=== PATIENT | female | born 1955 | race Caucasian/White ===

== ENCOUNTER 2024-10-11 17:47 | Inpatient (IN) | payer OTHER ==
[~2024-10-11] VITALS: Ht 160 cm; Wt 68.0 kg
[~2024-10-11 17:47] MED LIST: OMEP20CA74 OR
[2024-10-11] MEDS ORDERED: HEPARIN SODIUM (PORCINE) 5000 UNITS/ML 1ML VIAL IV ONE (18:30)
[2024-10-11] MEDS ORDERED: ONDANSETRON HCL 4 MG/2 ML VIAL IV PRN (18:30)
[2024-10-11] MEDS ORDERED: MORPHINE SULFATE INJ 2 MG/ml SYRG IV PRN ×2 (18:30)
[2024-10-11] MEDS ORDERED: HYDROcodone-ACET 5/325MG TAB PO PRN (18:30)
[2024-10-11] MEDS ORDERED: NITROGLYCERIN 0.4 MG SL TAB SL PRN (18:30)
[2024-10-11 18:39] VITALS: BP 121/71; PULSE 77; RESP 17; TEMP 98; O2SAT 97
[2024-10-11 19:11] LABS: Hematocrit 39.3 % (36.0-46.0); Hemoglobin 13.3 g/dL (12.2-16.2); Mean Corpuscular Hemoglobin 31.7 pg (28.0-32.0); Mean Corpuscular Volume 93.3 fL (80.0-100.0); Nucleated Red Blood Cells % 0.1 %
[2024-10-11 19:24] LABS: Alanine Aminotransferase 13 U/L (7-40); Albumin 4.7 g/dL (3.2-4.8); Alkaline Phosphatase 106 U/L (46-116); Anion Gap 8 (5-15); BUN/Creatinine Ratio 13.0 (10.0-20.0); Blood Urea Nitrogen 10 mg/dL (9-23); Calcium 9.6 mg/dL (8.7-10.4); Carbon Dioxide 26 mmol/L (20-31); Chloride 106 mmol/L (98-107); Glucose 103 mg/dL (74-106); Magnesium 2.2 mg/dL (1.6-2.6); Potassium 4.7 mmol/L (3.5-5.1); Sodium 140 mmol/L (136-145); Total Protein 7.0 g/dL (5.7-8.2)
[2024-10-11] MEDS ORDERED: ATOR20TA PO (19:24)
[2024-10-11 19:25] LABS: Bilirubin, Total 1.0 mg/dL (0.2-1.0)
[2024-10-11 19:36] LABS: INR 0.97 (0.9-1.15); Partial Thromboplastin Time 27.0 SEC (24.5-34.5); Prothrombin Time 10.3 sec (9.3-11.8)
[2024-10-11 20:30] VITALS: PULSE 87; O2SAT 96
[2024-10-11 21:00] VITALS: BP 122/56; PULSE 80; RESP 16; TEMP 98.5; O2SAT 98
[2024-10-11] MEDS: HEPARIN DRIP/D5W 100UNITS/ML 250 ML IV SCH (21:26)
[2024-10-11] MEDS: ACETAMINOPHEN 325 MG TAB PO PRN (23:31)
[2024-10-12] VITALS (9 sets, daily range): BP systolic 91–115; BP diastolic 52–74; PULSE 69–80; RESP 16–20; TEMP 98–99; O2SAT 95–98
--- NOTE | 2024-10-12 00:44 | DVHHP2 ---
Admitting Diagnosis: Left lower extremity DVT History of Present Illness History Source: Patient Exam Limitations: No limitations HPI Mrs. Linda Devries is a 69 yo female with a history of high cholesterol and acid reflux who presents with a chief complaint of left lower extremity DVT sent from Urgent care as a direct admit. Patient reports she had sudden left lower extremity pain on Thursday with associated worsening swelling. Patient denies any trauma to left lower extremity, recent falls, dyspnea, palpitations, chest pain. Patient admitted for further treatment. Home Meds Reported Medications Atorvastatin Calcium (Lipitor) 20 Mg Tab, 1 TAB PO DAILY, #90 TAB 1 Refill 10/11/24 Omeprazole (PRILOSEC) 20 Mg Cap, 40 MG OR DAILY, CAP 10/23/14 Past Medical History Cardiac: Other (high cholesterol) Pulmonary: No pertinent Hx Central Nervous System: No pertinent Hx GI: GERD Hemotology/Oncology: No pertinent Hx Hepatobiliary: No pertinent Hx Psychiatric: No pertinent Hx Musculoskeletal: No pertinent Hx Rheumotologic: No pertinent Hx Infectious Disease: No peritnent Hx ENT: No pertinent Hx Renal/: No pertinent Hx Endocrine: No pertinent Hx Dermatology: No pertinent Hx Patient Family History: FH: cancer G8 MOTHER G8 FATHER Smoker: No Hx (Negative) Alocohol: None Drugs: None Lives with: With family Domestic Violence: Neg Review of Systems Constitutional: No symptom reported Ears, Nose, & Throat: No symptom reported Eyes: No symptom reported Pulmonary/Respiratory: No symptom reported Cardiovascular: No symptom reported Gastrointestinal: No symptom reported Genitourinary: No symptom reported Musculoskeletal: Leg pain (left lower extremity pain with swelling) Skin: No symptom reported Psychiatric: No symptom reported Endocrine: No symptom reported Hemotologic/Lymphatic: No symptom reported H&P Exam Vital Signs Vital Signs Date Time Temp Pulse Resp B/P (MAP) Pulse Ox O2 Delivery O2 Flow Rate FiO2 10/11/24 21:00 98.5 80 16 122/56 (78) 98 98.5 10/11/24 18:39 Room Air* 0 21 General Appeara: Well developed, Well nourished, Normal Appearance Head Exam: Normal inspection Neck Exam: Normal inspection, Non-tender, Normal alignment Eye Exam: bilateral eye Normal inspection, bilateral eye PERRL, bilateral eye EOMI Ear Exam: bilateral ear Auricle normal Nasal Exam: Normal inspection Mouth: Normal Inspection Pulmonary/Respiratory: Normal inspection, Normal breath sounds, Chest non- tender, Lungs clear Cardiovascular/Chest: Normal inspection, Regular rate, Normal Rhythm Peripheral Pulses: 2+ dorsalis pedis (R), 2+ dorsalis pedis (L), 2+ Radial (R), 2+ Radial (L) Abdominal Exam: Normal bowel sounds, Soft Rectal Exam: Deferred Legs: left leg soft tissue tenderness, left leg swelling SAMPLE MOUNTER Exam: Normal hearing, Normal speech, PERRL Motor/Sensory: Normal sensory function, Normal motor function Neuro/Mental St: Alert, Oriented Appearance: Appropriate appearance Eye contact/ Speech: Cooperative, Good eye contact, Normal speech Thoughts/Psych: Normal thought pattern Skin Exam: Normal inspection, Normal color, Warm/dry SEPSIS Sepsis Screen Physician Orders Admit (10/11/24 18:) Oxygen By Nasal Cannula (10/11/24 18:27) Nitroglycerin Sublingual (Ntrostat Subli (10/11/24 18:30) Morphine Sulfate Injection (10/11/24 18:30) Stat Ekg For Chest Pain (10/11/24 18:) Notify Md Of Changes From Base (10/11/24 18:) Pricing Lead For 24 Hours (10/11/24 18:27) Emergency Dysrhythmia Protocol (10/11/24 18:) Rhythm Strips Once Every Shift (10/11/24 18:) Platelet Monitoring (10/11/24 18:27) Vte Protocol Initiated (10/11/24 18:) Heparin Per Standardized Proce (10/11/24 18:) Discontinue All Im Injections (10/11/24 18:27) Heparin Drip/D5w 100units/Ml (10/11/24 20:00) Acetaminophen Tablet (Tylenol Tablet) (10/11/24 18:30) Hydrocodone-Acet 5/325mg Tab ([place] 5/32 (10/11/24 18:30) Morphine Sulfate Injection (10/11/24 18:30) Ondansetron Hcl (Zofran) (10/11/24 18:30) * Radiologist Consult (10/11/24 18:27) Npo (Nothing By Mouth) Diet (10/12/24 Breakfast) PTPTT (10/12/24 03:30) Complete Blood Count (10/12/24 04:00) Urinalysis (10/12/24 00:39) Chest Portable (10/12/24 00:39) Vital Signs Date Time Temp Pulse Resp B/P (MAP) Pulse Ox O2 Delivery O2 Flow Rate FiO2 10/11/24 21:00 98.5 80 16 122/56 (78) 98 98.5 10/11/24 18:39 Room Air* 0 21 10/11/24 18:39 98.0 77 17 121/71 (88) 97 98.0 Laboratory Tests Test 10/11/24 18:57 White Blood Count 7.2 10^3/uL (4.4-10.8) Medications Medications Dose Ordered Sig/Héctor Route Start Time Stop Time Status Last Admin Dose Admin Acetaminophen 650 mg Q6HP PRN PO 10/11/24 18:30 10/11/24 23:31 650 MG Heparin Sodium/ Dextrose 250 ml @ 12 mls/hr [id number] IV 10/11/24 20:00 10/11/24 21:26 12 MLS/HR Labs/Xrays Labs Test 10/11/24 18:57 Range/Units White Blood Count 7.2 4.4-10.8 10^3/uL Red Blood Count 4.21 4.0-5.20 10^6/uL Hemoglobin 13.3 12.2-16.2 g/dL Hematocrit 39.3 36.0-46.0 % Mean Corpuscular Volume 93.3 80.0-100.0 fL Mean Corpuscular Hemoglobin 31.7 28.0-32.0 pg Mean Corpuscular Hemoglobin Concent 33.9 32.0-36.0 g/dL Red Cell Distribution Width 15.1 H 11.8-14.3 % Platelet Count 163 140-450 10^3/uL Mean Platelet Volume 8.8 6.9-10.8 fL Neutrophils (%) (Auto) 71.2 37.0-80.0 % Lymphocytes (%) (Auto) 17.6 10.0-50.0 % Monocytes (%) (Auto) 8.8 0.0-12.0 % Eosinophils (%) (Auto) 1.7 0.0-7.0 % Basophils (%) (Auto) 0.7 0.0-2.0 % Neutrophils # (Auto) 5.1 1.6-8.6 10 ^3/uL Lymphocytes # (Auto) 1.3 0.4-5.4 10 ^3/uL Monocytes # (Auto) 0.6 0-1.3 10 ^3/uL Eosinophils # (Auto) 0.1 0-0.8 10 ^3/uL Basophils # (Auto) 0 0-0.2 10 ^3/uL Nucleated Red Blood Cells 0.1 % Prothrombin Time 10.3 9.3-11.8 sec Prothrombin Time INR 0.97 0.9-1.15 Activated Partial Thromboplast Time 27.0 24.5-34.5 SEC Sodium Level 140 136-145 mmol/L Potassium Level 4.7 3.5-5.1 mmol/L Chloride Level 106 98-107 mmol/L Carbon Dioxide Level 26 20-31 mmol/L Anion Gap 8 5-15 Blood Urea Nitrogen 10 9-23 mg/dL Creatinine 0.77 0.550-1.02 mg/dL Glomerular Filtration Rate Calc 83 >90 mL/min BUN/Creatinine Ratio 13.0 10.0-20.0 Serum Glucose 103 74-106 mg/dL Calcium Level 9.6 8.7-10.4 mg/dL Magnesium Level 2.2 1.6-2.6 mg/dL Total Bilirubin 1.0 0.2-1.0 mg/dL Aspartate Amino Transferase (AST) 17 13-40 U/L Alanine Aminotransferase (ALT) 13 7-40 U/L Alkaline Phosphatase 106 46-116 U/L B-Type Natriuretic Peptide 25.83 0-100 pg/mL Total Protein 7.0 5.7-8.2 g/dL Albumin 4.7 3.2-4.8 g/dL Assessment/Plan Problem List: (1) Left leg DVT Plan This is a 69 yo female who presents as a direct admit from Urgent care found to have 1. Left lower extremity DVT 2. Hypercholesteremia 3. GERD Plan Admit Telemetry Interventional Radiology consultation Heparin drip per pharmacy DVT protocol NPO after midnight GI ppx Fall Precautions Discussed all above with patient who verbalizes agreement and understanding of care plan. All questions were answered. Discussed care plan with admitting / supervising MD. Plan discussed with: Patient, Other Code Visit Code Visit Total Time (mins): 45 Additional Comments Additional Comments Additional Comments 69-year-old female with a known history of dyslipidemia, GERD who initially presented to the hospital with a left lower extremity swelling worsening for last three days was seen in urgent Care found to have left lower extremity extensive DVT. 1. Left lower extremity extensive DVT 2. GERD 3. Dyslipidemia -continue heparin drip per pharmacy for DVT, IR consult for thrombectomy -CT pelvis with a venous contrast phase as per IR request. MIQUEL REICH Oct 12, 2024 00:44 FLORI ARTEAGA MD Oct 12, 2024 15:37
[2024-10-12 03:42] LABS: Hematocrit 35.9 % (36.0-46.0); Hemoglobin 12.3 g/dL (12.2-16.2); Mean Corpuscular Hemoglobin 32.0 pg (28.0-32.0); Mean Corpuscular Volume 93.2 fL (80.0-100.0); Nucleated Red Blood Cells % 0.0 %
[2024-10-12 04:21] LABS: INR 0.97 (0.9-1.15); Partial Thromboplastin Time 68.5 SEC (24.5-34.5); Prothrombin Time 10.3 sec (9.3-11.8)
[2024-10-12 05:45] LABS: Urine Protein, UAD Negative (Negative)
--- NOTE | 2024-10-12 07:23 | DVH ---
CHEST RADIOGRAPH Indication:admit Technique: Single frontal view of the chest was obtained COMPARISON: None FINDINGS: Lines and Tubes: None Lungs: Clear Pleura: No effusion. No pneumothorax. Cardiomediastinal contours: Unremarkable Bones: Unremarkable IMPRESSION: 1. No acute disease.
[2024-10-12] MEDS: cefTRIAXone 1GM/50ML D5W 50 ML IV SCH (09:35)
[2024-10-12 10:57] LABS: INR 0.98 (0.9-1.15); Prothrombin Time 10.4 sec (9.3-11.8)
[2024-10-12 11:06] LABS: Partial Thromboplastin Time 88.0 SEC (24.5-34.5)
--- NOTE | 2024-10-12 11:20 | CONS ---
Pharmacy Clinical Information: 10/12 PTT @ 1010 = 88.0 DECREASE TO 1000 UNITS/HR NEXT PTT @ 1720 10/12/24 PER RX PROTOCOL CONFIRMED WITH NURSE JANNY JACINTO [facility] RESIDENT Oct 12, 2024 11:20
[2024-10-12] MEDS: HEPARIN DRIP/D5W 100UNITS/ML 250 ML IV SCH (12:12)
[2024-10-12] MEDS: IOHEXOL 350 MG/ML 100ML IJ ONE (15:46)
--- NOTE | 2024-10-12 16:32 | DVH ---
Exam: CT PELVIS WITH CONTRAST ONLY History: pre-op Comparison Study: None Technique: Multidetector CT of the pelvis was performed from iliac crests to pubic symphysis after th e administration of intravenous contrast was administered during this examination. Portal venous imag ing was obtained. Axial, coronal and sagittal multiplanar reformats were performed by the technTreSensais t on a separate workstation. Radiation Dose : CT Dose: CTDI volume is 12.97 mGy. Dose-length product is 581.07 mGy*cm Findings: Visualized bowel: No bowel wall thickening or dilatation. Ascites: Absent Lymphadenopathy: No pelvic or mesenteric lymphadenopathy. Vasculature: The visualized abdominal aorta is normal in size and caliber. Abdominal and pelvic vesse ls demonstrate normal enhancement. Pelvic Organs: Calcified uterus measure 9.3 cm length 3.2 cm by 5.2 cm Musculoskeletal: No acute osseous abnormality. Bladder: Unremarkable Soft tissues: Mild subcutaneous edema proximal left femur. IMPRESSION: 1. Uterus with calcified fibroids 2. No bony fractures All CT scans at this medical facility are performed using dose modulation techniques as appropriate t o a performed exam including the following: Automated exposure control was utilized; adjustment of th e MA and/or KV according to patient size; and use of iterative reconstruction technique.
[2024-10-12 18:56] LABS: INR 1.0 (0.9-1.15); Prothrombin Time 10.6 sec (9.3-11.8)
[2024-10-12 18:58] LABS: Partial Thromboplastin Time 73.7 SEC (24.5-34.5)
[2024-10-13] VITALS (14 sets, daily range): BP systolic 92–142; BP diastolic 55–77; PULSE 60–87; RESP 12–20; TEMP 97.4–98.5; O2SAT 94–100
[2024-10-13 01:08] LABS: INR 1.0 (0.9-1.15); Prothrombin Time 10.6 sec (9.3-11.8)
[2024-10-13 01:15] LABS: Partial Thromboplastin Time 73.8 SEC (24.5-34.5)
[2024-10-13 06:32] LABS: Hematocrit 37.2 % (36.0-46.0); Hemoglobin 12.6 g/dL (12.2-16.2); Mean Corpuscular Hemoglobin 31.6 pg (28.0-32.0); Mean Corpuscular Volume 93.2 fL (80.0-100.0); Nucleated Red Blood Cells % 0.0 %
[2024-10-13 09:46] LABS: INR 0.97 (0.9-1.15); Partial Thromboplastin Time 64.8 SEC (24.5-34.5); Prothrombin Time 10.3 sec (9.3-11.8)
--- NOTE | 2024-10-13 10:19 | CONS ---
Pharmacy Clinical Information: 10/13 PTT @0900 = 64.8 NO BOLUS NO CHANGE THIS IS THE 3RD CONSECUTIVE PTT WNL, WE WILL SCHEDULED PTT DAILY NEXT PTT @0500 10/14/24 PER RX PROTOCOL [facility] Oct 13, 2024 10:19
--- NOTE | 2024-10-13 11:15 | ECG ---
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
[2024-10-13] MEDS: HEPARIN SODIUM (PORCINE) 5000 UNITS/ML 1ML VIAL ONE (13:27)
[2024-10-13] MEDS: MIDAZOLAM HCL 2MG/2ML 2ml VIAL (1mg/ml) ONE (13:28)
[2024-10-13] MEDS: IODIXANOL 320MG/ML 100ML BTL IV ONE (13:28)
[2024-10-13] MEDS: LIDOCAINE 2%HCL (LOCAL ANESTH.) INJ 20ML MDV ONE (13:28)
[2024-10-13] MEDS: fentaNYL CITRATE 100 MCG/2 ML VL ONE (13:28)
--- NOTE | 2024-10-13 13:58 | DVHPN2 ---
Subjective Patient complaining of minimal pain in the left lower extremity, CT pelvis shows no evidence of any acute pathology. Patient is going for left leg thrombectomy by IR today. 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 Medications Current Medications Medications Dose Ordered Sig/Héctor Route Start Time Stop Time Status Last Admin Dose Admin Nitroglycerin 0.4 mg Q5MINP PRN SL 10/11/24 18:30 Morphine Sulfate 2 mg Q30M PRN IV 10/11/24 18:30 Acetaminophen 650 mg Q6HP PRN PO 10/11/24 18:30 10/11/24 23:31 650 MG Acetaminophen/ Hydrocodone Bitart 1 tab Q4HPRN PRN PO 10/11/24 18:30 Morphine Sulfate 2 mg Q4HPRN PRN IV 10/11/24 18:30 Ondansetron HCl 2 mg Q4HPRN PRN IV 10/11/24 18:30 Ceftriaxone Sodium 50 ml @ 100 mls/hr DAILY@09 IV 10/12/24 09:00 10/13/24 10:21 100 MLS/HR Heparin Sodium/ Dextrose 250 ml @ 10 mls/hr Q24H IV 10/12/24 11:20 10/12/24 16:30 10 MLS/HR Laboratory Results Laboratory Tests 10/11/24 18:57 10/13/24 05:17 Coagulation Test 10/12/24 18:11 10/13/24 00:20 10/13/24 09:00 Prothrombin Time 10.6 sec (9.3-11.8) 10.6 sec (9.3-11.8) 10.3 sec (9.3-11.8) Prothrombin Time INR 1.00 (0.9-1.15) 1.00 (0.9-1.15) 0.97 (0.9-1.15) Activated Partial Thromboplast Time 73.7 SEC (24.5-34.5) *H 73.8 SEC (24.5-34.5) *H 64.8 SEC (24.5-34.5) H Urinalysis Test 10/12/24 05:04 Urine Color Yellow (Yellow) Urine Clarity Clear (Clear) Urine pH 5.5 (5.0-9.0) Urine Specific [place] 1.027 (1.001-1.035) Urine Protein Negative (Negative) Urine Ketones Negative (Negative) Urine Blood Negative /uL (Negative) Urine Nitrite Negative (Negative) Urine Bilirubin Negative (Negative) Urine Urobilinogen Normal mg/dL (Negative) Urine Leukocyte Esterase 1+ /uL (Negative) Urine RBC None seen /hpf (0 - 4) Urine Microscopic WBC 5 /HPF (0-5) Urine Squamous Epithelial Cells Few /hpf (<5) Urine Bacteria None seen /hpf (None Seen) Urine Mucus Few (None Seen) Urine Glucose Normal mg/dL (Normal) Microbiology Microbiology Date/Time Source Procedure Growth Status 10/12/24 05:04 Voided Urine Urine Culture - Preliminary Resulted Assessment/Plan Assessment/Plan 69-year-old female with a known history of dyslipidemia, GERD who initially presented to the hospital with a left lower extremity swelling worsening for last three days was seen in urgent Care found to have left lower extremity extensive DVT. 1. Left lower extremity extensive DVT, currently on heparin drip 2. GERD 3. Dyslipidemia -continue heparin drip per pharmacy for DVT, IR consult for thrombectomy -discharge plan tomorrow on Eliquis. Plan discussed with: Patient, Spouse My Orders Orders - FLORI ARTEAGA MD Procedure Category Date Status Time Pelvis With Contrast CT 10/12/24 Resulted Only 15:21 Heparin Per Pharmacy MITCH 10/13/24 In Process Protocol 01:19 Complete Blood Count LAB 10/14/24 Verified 05:00 PTPTT LAB 10/14/24 Verified 05:00 Heparin Per Pharmacy MITCH 10/13/24 In Process Protocol 10:10 Midazolam Injection PHA 10/13/24 In Process (Versed Injection) 13:28 Date of Service: Oct 13, 2024 Billing Provider: FLORI ARTEAGA MD Common Visit Codes: NOT BILLABLE FLORI ARTEAGA MD Oct 13, 2024 13:58
--- NOTE | 2024-10-13 18:19 | DVH ---
PROCEDURE: Diagnostic venography and interventions Procedural Personnel Attending physician(s): Samson Veras Fellow physician(s): None Resident physician(s): None Advanced practice provider(s): None Procedure Date (//yy): 10/13/2024 Pre-procedure diagnosis: Left lower extremity DVT Post-procedure diagnosis: Same Indication: Deep venous thrombosis of uncertain age Additional clinical history: None Complications: No immediate complications. 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 Wide patency at case end with venous recanalization, mechanical thrombectomy, balloon venoplas ty, and stent placement. Plan: Continue anticoagulation with bridge to DOAC. Suture retention device to be removed 10/14/2Left knee s traight x2 hours, with assisted ambulation to follow. PROCEDURE SUMMARY: - Venous access with ultrasound guidance - Selective venography as described below - Additional procedure(s): None PROCEDURE DETAILS: Pre-procedure Consent: Informed consent for the procedure including risks, benefits and alternatives was obtained a nd time-out was performed prior to the procedure. Preparation: The site was prepared and draped using maximal sterile barrier technique including cutan eous antisepsis. Anesthesia/sedation Level of anesthesia/sedation: Moderate sedation (conscious sedation) Anesthesia/sedation administered by: Independent trained observer under attending supervision with co ntinuous monitoring of the patient s level of consciousness and physiologic status Total intra-service sedation time (minutes): 150 Access Local anesthesia was administered. The vessel was sonographically evaluated and determined to be part ially thrombosed. Real time ultrasound was used to visualize needle entry into the vessel and a perma nent image was stored. A 13 [place] sheath was placed. Laterality: Left Vein accessed: Popliteal vein Access technique: Micropuncture set with 21 gauge needle Venography The veins were catheterized using 5 [place] Berenstein/5 Fr GlideCath/0.035 stiff glidewire/0.035 Ampl jeff. Indication for venography: Diagnostic angiography - There was no prior catheter-based angiographic st udy available and a full diagnostic study was performed. The decision to intervene was based on the d iagnostic study. Vein catheterized: Left popliteal vein Findings: Near complete thrombosis of the left popliteal, femoral, common femoral, and external iliac veins. 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 prominent regional collaterals Venoplasty Venoplasty location: Left common iliac vein Venoplasty balloon: 6x40 Bostic Post-intervention venography: Minimal flow within the recanalized left common iliac vein Venous stent placement Venous stent location: Left common iliac vein Venous stent: Abre 14mm x 80mm Post-stenting venoplasty: Conquest 14mm x 40mm (subnominal, approx 1-2 andrea) Post-stenting venography: Wide patency of left common iliac stent with appropriate contrast washout Mechanical or aspiration thrombectomy Venous segment treated: Left common iliac, external iliac, common femoral, femoral, and popliteal vei ns Thrombectomy device: ClotTriever Bold Post-thrombectomy venography: Resolution of thrombus burden with persistent moderate flow limiting st enosis of the left common iliac vein Intra-procedural thrombolytic injection Thrombolytic injection location: NA Thrombolytic agent:NA Thrombolytic dose: NA Post-intervention venography: NA Initiation of catheter-directed thrombolysis Catheter placed: NA Infusion length: NA Venous segment infused: NA Intravascular ultrasound Vessel imaged: None Indication for IVUS: Not applicable Findings: Not applicable Closure The sheath was removed and hemostasis was achieved. Venous closure technique: FlowStasis Contrast Contrast agent: Visipaque 320 Contrast volume (mL): 100 Radiation Dose Fluoroscopy time (mm:ss): 26:49 Reference air kerma (mGy): 125 Kerma area product (Gy-cm2): 18.66 Additional Details Additional description of procedure: None Registry event: V/3/g Device used: None Equipment details: None Unique Device Identifiers: Not available Specimens removed: None Estimated blood loss (mL): Less than 10 Standardized report: [email or web address] Attestation Signer name: Samson Veras I attest that I was present for the entire procedure. I reviewed the stored images and agree with the report as written.
[2024-10-13 18:39] LABS: INR 1.02 (0.9-1.15); Prothrombin Time 10.8 sec (9.3-11.8)
[2024-10-13 18:54] LABS: Partial Thromboplastin Time 110.9 SEC (24.5-34.5)
[2024-10-13] MEDS: HEPARIN DRIP/D5W 100UNITS/ML 250 ML IV SCH (20:01)
[2024-10-14] VITALS (8 sets, daily range): BP systolic 106–128; BP diastolic 60–79; PULSE 72–83; RESP 18–20; TEMP 98–99.7; O2SAT 94–99
[2024-10-14 02:22] LABS: Hematocrit 37.5 % (36.0-46.0); Hemoglobin 12.7 g/dL (12.2-16.2); Mean Corpuscular Hemoglobin 31.7 pg (28.0-32.0); Mean Corpuscular Volume 93.6 fL (80.0-100.0); Nucleated Red Blood Cells % 0.1 %
[2024-10-14 02:49] LABS: INR 0.98 (0.9-1.15); Partial Thromboplastin Time 38.3 SEC (24.5-34.5); Prothrombin Time 10.4 sec (9.3-11.8)
[2024-10-14] MEDS: HEPARIN DRIP/D5W 100UNITS/ML 250 ML IV SCH ×2 (03:14→12:35)
[2024-10-14 11:41] LABS: INR 1.0 (0.9-1.15); Partial Thromboplastin Time 40.6 SEC (24.5-34.5); Prothrombin Time 10.6 sec (9.3-11.8)
--- NOTE | 2024-10-14 12:25 | CONS ---
Pharmacy Clinical Information: 10/14/2024 APTT result of 40.6 received from 1037 draw. Per protocol, will adjust heparin to 1100 units per hour (11mL/hr). Nurse Vidal adjusted rate at 1153, confirmed at 1215. APTT/PT ordered for 10/14 @1800 per PRx protocol. ERNESTO CUEVAS PHARMACIST Oct 14, 2024 12:25
[2024-10-14] MEDS ORDERED: APIX5TAB PO (14:44)
[2024-10-14] MEDS ORDERED: HYDR-4902 PO (14:44)
--- NOTE | 2024-10-14 14:46 | DVHDS2 ---
Discharge Summary Date of Admission Oct 11, 2024 at 18:15 Date of Discharge: Oct 14, 2024 Labs/Diagnostic Data: Laboratory Results Test 10/14/24 10:37 10/14/24 01:48 10/12/24 05:04 10/11/24 18:57 Prothrombin Time 10.6 sec (9.3-11.8) Prothrombin Time INR 1.00 (0.9-1.15) Activated Partial Thromboplast Time 40.6 SEC (24.5-34.5) White Blood Count 6.1 10^3/uL (4.4-10.8) Red Blood Count 4.01 10^6/uL (4.0-5.20) Hemoglobin 12.7 g/dL (12.2-16.2) Hematocrit 37.5 % (36.0-46.0) Mean Corpuscular Volume 93.6 fL (80.0-100.0) Mean Corpuscular Hemoglobin 31.7 pg (28.0-32.0) Mean Corpuscular Hemoglobin Concent 33.8 g/dL (32.0-36.0) Red Cell Distribution Width 14.8 % (11.8-14.3) Platelet Count 179 10^3/uL (140-450) Mean Platelet Volume 8.9 fL (6.9-10.8) Neutrophils (%) (Auto) 71.6 % (37.0-80.0) Lymphocytes (%) (Auto) 18.3 % (10.0-50.0) Monocytes (%) (Auto) 7.1 % (0.0-12.0) Eosinophils (%) (Auto) 2.4 % (0.0-7.0) Basophils (%) (Auto) 0.6 % (0.0-2.0) Neutrophils # (Auto) 4.4 10 ^3/uL (1.6-8.6) Lymphocytes # (Auto) 1.1 10 ^3/uL (0.4-5.4) Monocytes # (Auto) 0.4 10 ^3/uL (0-1.3) Eosinophils # (Auto) 0.1 10 ^3/uL (0-0.8) Basophils # (Auto) 0 10 ^3/uL (0-0.2) Nucleated Red Blood Cells 0.1 % Urine Color Yellow (Yellow) Urine Clarity Clear (Clear) Urine pH 5.5 (5.0-9.0) Urine Specific [place] 1.027 (1.001-1.035) Urine Protein Negative (Negative) Urine Ketones Negative (Negative) Urine Blood Negative /uL (Negative) Urine Nitrite Negative (Negative) Urine Bilirubin Negative (Negative) Urine Urobilinogen Normal mg/dL (Negative) Urine Leukocyte Esterase 1+ /uL (Negative) Urine RBC None seen /hpf (0 - 4) Urine Microscopic WBC 5 /HPF (0-5) Urine Squamous Epithelial Cells Few /hpf (<5) Urine Bacteria None seen /hpf (None Seen) Urine Mucus Few (None Seen) Urine Glucose Normal mg/dL (Normal) Sodium Level 140 mmol/L (136-145) Potassium Level 4.7 mmol/L (3.5-5.1) Chloride Level 106 mmol/L (98-107) Carbon Dioxide Level 26 mmol/L (20-31) Anion Gap 8 (5-15) Blood Urea Nitrogen 10 mg/dL (9-23) Creatinine 0.77 mg/dL (0.550-1.02) Glomerular Filtration Rate Calc 83 mL/min (>90) BUN/Creatinine Ratio 13.0 (10.0-20.0) Serum Glucose 103 mg/dL (74-106) Calcium Level 9.6 mg/dL (8.7-10.4) Magnesium Level 2.2 mg/dL (1.6-2.6) Total Bilirubin 1.0 mg/dL (0.2-1.0) Aspartate Amino Transferase (AST) 17 U/L (13-40) Alanine Aminotransferase (ALT) 13 U/L (7-40) Alkaline Phosphatase 106 U/L (46-116) B-Type Natriuretic Peptide 25.83 pg/mL (0-100) Total Protein 7.0 g/dL (5.7-8.2) Albumin 4.7 g/dL (3.2-4.8) Other Laboratory Tests 10/14/24 01:48 10/11/24 18:57 Brief Hx & Hospital Course: Mrs. Linda Devries is a 69 yo female with a history of high cholesterol and acid reflux who presents with a chief complaint of left lower extremity DVT sent from Urgent care as a direct admit. Patient reports she had sudden left lower extremity pain on Thursday with associated worsening swelling. Patient denies any trauma to left lower extremity, recent falls, dyspnea, palpitations, chest pain. Patient admitted for further treatment. She is admitted and had a pelvic CT showed a calcified uterine fibroid. Chest x-ray did not show any acute pathology. Lower extremity showed extensive DVT therefore she is evaluated by Interventional Radiology underwent successful thrombectomy. Post thrombectomy she is doing better. Meantime while in the hospital she is continued on IV heparin per DVT protocol. She is transitioned to oral Eliquis. Otherwise overall patient clinically stable. Leg pain has improved. Feeling better. Therefore it is felt she can be safely discharged home. Patient denied any chest pain or shortness for breath symptoms. Oxygenating normally on room air. However the etiology for her blood clot in the leg is unclear. There her I have educated the patient and counseled that she needs to follow up with her primary care physician to have routine screening studies including but not limited to mammogram and colonoscopy and further workup and evaluation for her blood clot. Patient verbalized understanding of this and verbalized understanding of being compliance with the oral anticoagulation and have a close follow up as mentioned. Operations or Procedures PROCEDURE: Diagnostic venography and interventions Procedural Personnel Attending physician(s): Samson Veras Fellow physician(s): None Resident physician(s): None Advanced practice provider(s): None Procedure Date (mm/dd/yyyy): 10/13/2024 Pre-procedure diagnosis: Left lower extremity DVT Post-procedure diagnosis: Same Indication: Deep venous thrombosis of uncertain age Additional clinical history: None Complications: No immediate complications. 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 Wide patency at case end with venous recanalization, mechanical thrombectomy, balloon venoplasty, and stent placement. Plan: Continue anticoagulation with bridge to DOAC. Suture retention device to be removed 10/14/2Left knee straight x2 hours, with assisted ambulation to follow. Condition at Discharge: Stable Final Diagnosis/Problems List Acute/subacute lower extremity DVT status post thrombectomy by Interventional Radiology, lower extremity pain Discharge Disposition: Home Discharge Instruct/Medications Diet: Consistent carbohydrate, Cardiac 2g Na,low cholest Activity: No Restrictions, As Tolerated Follow Up/Referral: Primary care physician next week for further workup and evaluation of your blood clot and referral to healthcare architect/oncologist as appropriate. Medications: Take Eliquis blood thinner as prescribed for your blood clot and [place] as needed for leg pain. Continue other home medications as you were taking. Scheduled Apixaban Base (Eliquis), 5 MG PO BID Atorvastatin Calcium (Lipitor), 1 TAB PO DAILY, (Reported) Omeprazole (Prilosec), 40 MG OR DAILY, (Reported) Scheduled PRN Hydrocodone-Acetaminophen (Hydrocodone Bitartrate/AC 5-325 mg), 1 TAB PO BID PRN Discharge Statement: "Patient was advised to return to the ER or call 911 if any headaches, dizziness, shortness of breath, chest pain, abdominal pain, bleeding, fevers, or worsening of medical condition. Patient was counseled about treatment plan, medications, possible side effects, patientverbalized understanding. All questions were answered to the best of my ability. This discharge took greater then 30 minutes in planning, reviewing documentation, counseling the patient, and discussing with other team members." ASSESSMENT ASSESSMENT Assessment Acute/subacute lower extremity DVT status post thrombectomy by Interventional Radiology, lower extremity pain GREG REICH MD Oct 14, 2024 14:46
[2024-10-14] MEDS: APIXABAN 5 MG TAB PO ONE (18:08)
[2024-10-14 19:20] LABS: INR 0.97 (0.9-1.15); Partial Thromboplastin Time 27.0 SEC (24.5-34.5); Prothrombin Time 10.3 sec (9.3-11.8)
== END 2024-10-14 18:35 | disposition home or self-care (01) | DRG 272 ==
LOC: TELE-WESTW 18:15
PROVIDERS: ADMIT Hospitalist; ATTEND Hospitalist
PROC: 06CD3ZZ Extirpation of Matter from Left Common Iliac Vein, Percutaneous Approach (ICD-10-PCS; principal; 2024-10-13)
PROC: 067D3DZ Dilation of Left Common Iliac Vein with Intraluminal Device, Percutaneous Approach (ICD-10-PCS; 2024-10-13)
PROC: B51CYZZ Fluoroscopy of Left Lower Extremity Veins using Other Contrast (ICD-10-PCS; 2024-10-13)
DX: I82.422 Acute embolism and thrombosis of left iliac vein (principal); K21.9 Gastro-esophageal reflux disease without esophagitis; E78.00 Pure hypercholesterolemia, unspecified; D25.9 Leiomyoma of uterus, unspecified; I82.432 Acute embolism and thrombosis of left popliteal vein; I82.412 Acute embolism and thrombosis of left femoral vein; Z79.899 Other long term (current) drug therapy
CPT/HCPCS: 36415; 37187; 71045; 72193; 76937; 80053; 81001; 83735; 83880; 85025; 85610; 85730; 86850; 86900; 86901; 87086; 93005; 99152; C1769; C1894; G0378; J2250; Q9967